=== PATIENT | female | born 1960 | race Caucasian/White ===

== ENCOUNTER 2018-05-07 07:17 | Day surgery (SDC) | payer OTHER ==
[2018-05-07 07:47] VITALS: BMI 22.1
--- NOTE | 2018-05-07 09:22 | CP.SDSHP ---
Same Day Surgery H & P - History Proposed Procedure: COLONSCOPY Pre-Op Diagnosis: SEE NOTES - Previous Medical/Surgical History Cardiac: Hypertension Endocrine/Metabolic: Diabetes Misc: Other Pain: 4.Moderate Pain - Allergies Allergies: Allergies No Known Allergies Allergy (Unverified 10/04/14 19:27) - Physical Exam General Appearance: N Vital Signs: Vital Signs 05/07/18 07:51 Temperature 97.5 F L Pulse Rate 70 Respiratory 16 Rate Blood Pressure 135/88 O2 Sat by Pulse 98 Oximetry Mental Status: Alert & Oriented x3 Neuro: WNL Heart: Other Lungs: WNL GI: Other - {Optional Preform as Required} Breast: WNL Abdomen: Other Rectal: Other Integument: WNL : WNL Ortho: Other ENT: WNL - Impression Pt. Evaluated Today:Candidate for Anesthesia & Procedure: Yes - Date & Time Time: 09:23 Short Stay Discharge - Short Stay Discharge Admitting Diagnosis/Reason for Visit: CHANGE IN BOWEL HABITS Disposition: HOME/ ROUTINE
[2018-05-07] MEDS ORDERED: Belladonna-Phenobarbital PO STA (09:24)
[2018-05-07] MEDS ORDERED: Lactated Ringer's 1,000 ML IV ONE (09:25)
[2018-05-07] MEDS ORDERED: Lactated Ringer's 500 ML IV SCH (09:30)
[2018-05-07] MEDS ORDERED: Propofol 10 mg/ml Inj (20 ML) ONE (09:32)
[2018-05-07] MEDS ORDERED: Belladonna-Phenobarbital PO ONE (10:45)
[2018-05-07 11:16] VITALS: RESP 18; TEMP 98.4
[2018-05-07 11:24] VITALS: BP 133/80; PULSE 95
[2018-05-07 11:27] VITALS: O2SAT 99
== END 2018-05-07 10:57 | disposition home or self-care (01) ==
LOC: C.ENDO 07:17
PROVIDERS: ATTEND Specialist
DX: R19.4 Change in bowel habit (principal); E11.9 Type 2 diabetes mellitus without complications; I10 Essential (primary) hypertension; K52.9 Noninfective gastroenteritis and colitis, unspecified; K64.8 Other hemorrhoids
CPT/HCPCS: 45380; 82948; 88305; 88313; 88342; J2001; J2704; J7120